=== PATIENT | female | born 1980 | race American Indian/Alaskan Native ===

== ENCOUNTER 2019-11-17 15:38 | Outpatient (CLI) | payer BC ==
--- NOTE | 2019-11-17 16:59 | XRay Report ---
CHEST PA AND LATERAL VIEWS INDICATION: NONSPECIFIC REACTION TO TUBERCULIN SKIN TEST W/O ACTIVE TB. COMPARISON: None. FINDINGS: Support devices: None. Heart: Within normal limits. Lungs/Pleura: No acute pulmonary or pleural findings. IMPRESSION: 1. No acute findings. No radiographic evidence of tuberculosis. Signer Name: Jg Peguero MD Signed: 11/17/2019 4:54 PM Workstation Name: [id number]
== END 2019-11-17 15:39 | disposition home or self-care (01) ==
LOC: XRAY 15:38
PROVIDERS: ATTEND Family Medicine
DX: R76.11 Nonspecific reaction to tuberculin skin test without active tuberculosis (principal)
CPT/HCPCS: 71046

== ENCOUNTER 2019-12-03 17:43 | Emergency (ER) | payer BC ==
--- NOTE | 2019-12-03 19:01 | Event Note ---
ED Screening Note Date of service: 12/03/19 Time: 18:59 ED Screening Note: Pt complains of elevated BP and diffuse muscle spasms home BP 190/130 recently started on nifedipine for BP HR in 130s-denies SP or SOB +right calf pain muscle spasms are chronic per pt This initial assessment/diagnostic orders/clinical plan/treatment(s) is/are subject to change based on patients health status, clinical progression and re- assessment by fellow clinical providers in the ED. Further treatment and workup at subsequent clinical providers discretion. Patient/guardian urged not to elope from the ED as their condition may be serious if not clinically assessed and managed. Initial orders include: labs US
--- NOTE | 2019-12-03 19:57 | Vascular Lab Report ---
DUPLEX DOPPLER LOWER EXTREMITY VEINS, RIGHT INDICATION: pain and mild swelling. Lower extremity pain and swelling. TECHNIQUE: Duplex doppler imaging was performed through the veins of the right lower extremity using venous comp ression and other maneuvers. COMPARISON: None available. FINDINGS: Common Femoral vein: Negative. Superficial Femoral vein: Negative. Popliteal vein: Negative. Calf veins: Negative. Additional findings: None. IMPRESSION: 1. No sonographic evidence for DVT in the right lower extremity. Signer Name: See Colvin MD Signed: 12/03/2019 7:53 PM Workstation Name: [id number]
[2019-12-03 20:01] LABS: Basophils # (Auto) 0.1 K/mm3 (0.0-0.1); Basophils % (Auto) 1.1 % (0.0-1.8); Eosinophils # (Auto) 0.2 K/mm3 (0.0-0.4); Eosinophils % (Auto) 3.2 % (0.0-4.3); Hematocrit 42.1 % (30.3-42.9); Lymphocytes # (Auto) 2.4 K/mm3 (1.2-5.4); Lymphocytes % (Auto) 37.4 % (13.4-35.0); Mean Corpuscular HGB Conc 33 % (30-34); Mean Corpuscular Volume 86 fl (79-97); Monocytes # (Auto) 0.6 K/mm3 (0.0-0.8); Monocytes % (Auto) 8.8 % (0.0-7.3); Platelet Count 267 K/mm3 (140-440); Red Cell Distribution Width 13.9 % (13.2-15.2)
[2019-12-03 20:23] LABS: Alanine Aminotransferase 34 units/L (7-56); Albumin 4.4 g/dL (3.9-5); BUN/Creatinine Ratio 15; Blood Urea Nitrogen 9 mg/dL (7-17); Hemolysis Index 9
[2019-12-03] MEDS ORDERED: hydrALAZINE 25 MG TAB PO ONE (21:06)
--- NOTE | 2019-12-03 21:29 | Emergency Department Report ---
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 Patient was recently started on nifedipine after visiting [facility] and saw Dr. Mckeon on November 07. Patient has had significant muscle spasms while on his medication in the past. She was restarted on nifedipine 60 mg extended release and several days later he began having significant muscle spasms all over her body. Patient can see the muscles contract and relax. Patient has been trying to follow back up with [facility] association please awaiting insurance approval which she was told it could take 7 to 10 days. 3 weeks later patient is still waiting for insurance approval and has had to cancel 2 scheduled appointments so far pending insurance approval. Tonight patient's muscle spasms became severe and unbearable and her blood pressure was elevated with increased heart rate during pain episode. Patient has been compliant with hydralazine 50 mg 3 times daily with her third dose scheduled at 9 PM, Atenolol 200 mg every morning, and Spironolactone 25 mg every morning. Patient has had adverse reactions to hydrochlorothiazide, labetalol (bronchospasm), Coreg (bronchospasm), lisinopril (cough), and Norvasc (edema) in the past. Patient states she has chronic intermittent tachycardia and denies history of PE/DVT, chest pain, shortness of breath. Patient did travel to [place] 2 to 3 weeks ago. She did have some muscle spasms to her right calf earlier which has since resolved and denies calf swelling or pain currently. Patient's blood pressure and muscle spasms have improved during ED stay without intervention. Although patient was evaluated by [facility] x 1 she now plans to follow back up with [facility] since she has been managed by [facility] in the past. - Related Data Previous Rx's Medication Instructions Recorded Last Taken Type Doxazosin [Cardura] 2 mg PO QHS #60 tablet 12/03/19 Unknown Rx Allergies Allergy/AdvReac Type Severity Reaction Status Date / Time lisinopril Allergy Unknown Verified 12/03/19 17:49 methocarbamol [From Robaxin] Allergy Unknown Verified 12/03/19 17:49 ED Review of Systems ROS: Stated complaint: POSS HIGH BP BODY SPASMS Other details as noted in HPI Comment: All other systems reviewed and negative ED Past Medical Hx - Past Medical History Previous Medical History?: Yes Hx Hypertension: Yes - Surgical History Past Surgical History?: No - Social History Smoking Status: Never Smoker Substance Use Type: None - Medications Home Medications: Home Medications Medication Instructions Recorded Confirmed Last Taken Type Doxazosin [Cardura] 2 mg PO QHS #60 tablet 12/03/19 Unknown Rx ED Physical Exam - General Limitations: No Limitations - Other Other exam information: General: No acute distress Head: Atraumatic Eyes: normal appearance ENT: Moist mucous membranes Neck: Normal appearance, no midline tenderness Chest: Minimal expiratory wheeze without tachypnea or accessory muscle CV: Regular rate and rhythm Abdomen: Soft, normal bowel sounds, nontender, nondistended, no rebound or guarding Back: Normal inspection Extremity: Normal inspection, full range of motion, no calf tenderness or leg edema, no active muscle spasms during exam Neuro: Alert O x 3, no facial asymmetry, speech clear, no gross motor sensory deficit Psych: Appropriate behavior Skin: No rash ED Course Vital Signs 12/03/19 12/03/19 12/03/19 18:49 18:54 20:20 Temperature 98 F Pulse Rate 118 H Respiratory 22 17 Rate Blood Pressure 210/117 Blood Pressure 164/108 [Left] O2 Sat by Pulse 96 98 Oximetry 12/03/19 12/03/19 21:16 21:21 Temperature Pulse Rate 93 H 98 H Respiratory 19 Rate Blood Pressure 161/106 161/106 Blood Pressure [Left] O2 Sat by Pulse 96 Oximetry - Consultations Consultation #1: 12/03/19 20:45 Case discussed with c banquet director on-call [facility] heart associate. Dr. Davis recommends to start Cardura 2 mg nightly which may be increased to twice daily if blood pressure remains uncontrolled. ED Medical Decision Making - Lab Data Result diagrams: 12/03/19 19:51 12/03/19 19:51 Lab Results 12/03/19 12/03/19 Range/Units 19:51 19:51 WBC 6.3 (4.5-11.0) K/mm3 RBC 4.90 (3.65-5.03) M/mm3 Hgb 14.0 (10.1-14.3) gm/dl Hct 42.1 (30.3-42.9) % MCV 86 (79-97) fl MCH 29 (28-32) pg MCHC 33 (30-34) % RDW 13.9 (13.2-15.2) % Plt Count 267 (140-440) K/mm3 Lymph % (Auto) 37.4 H (13.4-35.0) % Frio % (Auto) 8.8 H (0.0-7.3) % Eos % (Auto) 3.2 (0.0-4.3) % Baso % (Auto) 1.1 (0.0-1.8) % Lymph # 2.4 (1.2-5.4) K/mm3 Frio # 0.6 (0.0-0.8) K/mm3 Eos # 0.2 (0.0-0.4) K/mm3 Baso # 0.1 (0.0-0.1) K/mm3 Seg Neutrophils % 49.5 (40.0-70.0) % Seg Neutrophils # 3.1 (1.8-7.7) K/mm3 Sodium 134 L (137-145) mmol/L Potassium 3.8 (3.6-5.0) mmol/L Chloride 98.5 (98-107) mmol/L Carbon Dioxide 22 (22-30) mmol/L Anion Gap 17 mmol/L BUN 9 (7-17) mg/dL Creatinine 0.6 L (0.7-1.2) mg/dL Estimated GFR > 60 ml/min BUN/Creatinine Ratio 15 % Glucose 181 H (65-100) mg/dL Calcium 10.0 (8.4-10.2) mg/dL Magnesium 1.90 (1.7-2.3) mg/dL Total Bilirubin 0.30 (0.1-1.2) mg/dL AST 19 (5-40) units/L ALT 34 (7-56) units/L Alkaline Phosphatase 69 (35-129) units/L Total Protein 7.9 (6.3-8.2) g/dL Albumin 4.4 (3.9-5) g/dL Albumin/Globulin Ratio 1.3 % - Radiology Data Radiology results: report reviewed DUPLEX DOPPLER LOWER EXTREMITY VEINS, RIGHT INDICATION: pain and mild swelling. Lower extremity pain and swelling. TECHNIQUE: Duplex doppler imaging was performed through the veins of the right lower extremity using venous compression and other maneuvers. COMPARISON: None available. FINDINGS: Common Femoral vein: Negative. Superficial Femoral vein: Negative. Popliteal vein: Negative. Calf veins: Negative. Additional findings: None. IMPRESSION: 1. No sonographic evidence for DVT in the right lower extremity. - Medical Decision Making Patient having recurrent muscle spasms after restarting nifedipine. Patient does not have any clinical signs of DVT and Doppler is negative of the right lower extremity. Patient also has chronic intermittent tachycardia and does not express concern for PE given chronic elevation of heart rate and lack of chest pain or shortness of breath. Patient states she has had multiple negative PE wo rk-up in the past secondary to her elevated heart rate. Hr improved to 90's in ed without intervention and no signs of hypoxia. Case discussed with Dr. Davis who advises to start Cardura 2 mg nightly to be increased to twice daily if blood pressure remains uncontrolled. Nifedipine will be discontinued. Patient encouraged to continue her other blood pressure medications and follow-up with cardiology pt provided her evening hydralzine 50mg dose prior to d/c cardura 2mg not covered by her insurance but 1mg tabs are preferred as per [employer] formulary - Differential Diagnosis Electrolyte abnormality, adverse medication reaction, hypertensive emergenc Critical Care Time: No Critical care attestation.: If time is entered above; I have spent that time in minutes in the direct care of this critically ill patient, excluding procedure time. ED Disposition Clinical Impression: Uncontrolled hypertension, Adverse effects of medication, Muscle cramps Disposition: DC- TO HOME OR SELFCARE Is pt being admited?: No Does the pt Need Aspirin: No Condition: Stable Instructions: Doxazosin (By mouth), Hypertension (ED), Muscle Cramp (ED) Additional Instructions: You have been started on Cardura 2 mg to be taken at bedtime. If your blood pressure remains elevated despite this medication you may increase to 2 mg twice a day. Information about your new medication and possible side effects has been included with your discharge papers. Stop the nifedipine and continue your other blood pressure medication as prescribed. Follow-up with your banquet director for further management of your blood pressure and continue to monitor your blood pressure to determine if further medication adjustment is needed. Return if symptoms worsen as indicated by your discharge instructions. Prescriptions: Doxazosin [Cardura] 2 mg PO QHS #60 tablet Referrals: ELVIN BARRETT MD [Primary Care Provider] - 3-[address] [facility] [Provider Group] - 2-3 Days Time of Disposition: 21:43
[2019-12-03 22:07] VITALS: BP 152/92
== END 2019-12-03 22:00 | disposition home or self-care (01) ==
LOC: ED 17:43
DX: T50.995A Adverse effect of other drugs, medicaments and biological substances, initial encounter (principal); Y92.89 Other specified places as the place of occurrence of the external cause; I10 Essential (primary) hypertension; M62.838 Other muscle spasm; Z88.8 Allergy status to other drugs, medicaments and biological substances; Z79.899 Other long term (current) drug therapy
CPT/HCPCS: 36415; 80053; 83735; 85025

== ENCOUNTER 2019-12-07 11:18 | Outpatient (CLI) | payer BC ==
--- NOTE | 2019-12-07 14:46 | Mammography Report ---
DIGITAL SCREENING MAMMOGRAM WITH CAD, 12/07/2019 INDICATION: Routine screening mammography. History of bilateral benign surgical biopsies. TECHNIQUE: Digital bilateral 2D mammography was obtained in the craniocaudal and mediolateral obliq ue projections. This examination was interpreted with the benefit of Computer-Aided Detection analysi s. COMPARISON: None available. FINDINGS: Breast Density: The breasts are heterogeneously dense, which may obscure small masses. There is no evidence of dominant mass, suspicious calcifications or architectural distortion in eithe r breast. IMPRESSION: No mammographic evidence of malignancy. Follow up recommendation: Routine yearly BI-RADS Category 2: Benign. A "normal" or negative report should not discourage follow up or biopsy of a clinically significant f inding. A written summary of these findings will be mailed to the patient. The patient will be entered into a mammography reporting system which will generate a reminder letter for the patient's next appointmen t at the appropriate interval. The [employer] recommends yearly mammograms starting at age 40 and continuing as l bere as a woman is in good health. Breast MRI is recommended for women with an approximate 20-25% or greater lifetime risk of breast cancer, including women with a strong family history of breast or ova lowell cancer or who have been treated for Hodgkin's disease. Signer Name: Josue Chapa MD Signed: 12/07/2019 2:42 PM Workstation Name: [id number]
== END 2019-12-07 11:19 | disposition home or self-care (01) ==
LOC: SPVWC 11:18
PROVIDERS: ATTEND Family Medicine
DX: Z12.31 Encounter for screening mammogram for malignant neoplasm of breast (principal)
CPT/HCPCS: 77067

== ENCOUNTER 2019-12-13 11:16 | Outpatient (CLI) | payer BC ==
[2019-12-13 12:04] LABS: Alanine Aminotransferase 35 units/L (7-56); Albumin 3.9 g/dL (3.9-5); BUN/Creatinine Ratio 11; Blood Urea Nitrogen 8 mg/dL (7-17); Calcium 9.2 mg/dL (8.4-10.2); Chol/HDL Ratio 3.36 %; HDL Cholesterol 58 mg/dL (40-59); Hemolysis Index 2; LDL Cholesterol,Direct 128 mg/dL (50-130)
== END 2019-12-13 11:17 | disposition home or self-care (01) ==
LOC: LAB 11:16
DX: O90.3 Peripartum cardiomyopathy (principal); I10 Essential (primary) hypertension
CPT/HCPCS: 36415; 80053; 80061; 83880; 84443